=== PATIENT | female | born 1995 | race Caucasian/White ===

== ENCOUNTER 2018-06-09 22:19 | Emergency (ER) | payer OTHER, SELFPAY ==
[~2018-06-09] VITALS: Ht 160 cm; Wt 80.4 kg
[2018-06-09] MEDS ORDERED: SODIUM CHLORIDE FLUSH 10ML SYR IVF ONE (23:00)
[2018-06-09] MEDS ORDERED: SODIUM CHLORIDE 0.9% 1,000ML IVBOLUS ONE (23:00)
[2018-06-09 23:10] LABS: BASOPHILS # (AUTO) 0.03 x10^3/uL (0-0.1); BASOPHILS % (AUTO) 0 % (0-1); EOSINOPHILS # (AUTO) 0.32 x10^3/uL (0-0.4); EOSINOPHILS % (AUTO) 4 % (1-7); LYMPHOCYTES # (AUTO) 1.77 x10^3/uL (1-3.4); LYMPHOCYTES % (AUTO) 20 % (22-44); MD NO; MEAN CORPUSCULAR HEMOGLOBIN 28.9 pg (27.0-34.8); MEAN CORPUSCULAR HGB CONC 34.3 g/dL (32.4-35.8); MEAN CORPUSCULAR VOLUME 84.2 fL (80-100); MEAN PLATELET VOLUME 8.3 fL (7.4-10.4); MONOCYTES # (AUTO) 0.54 x10^3/uL (0.2-0.8); MONOCYTES % (AUTO) 6 % (2-9); NEUTROPHILS # (AUTO) 6.32 x10^3/uL (1.8-6.8); NEUTROPHILS % (AUTO) 70 % (42-75); PLATELET COUNT 237 x10^3/uL (130-400); RED BLOOD COUNT 4.82 x10^6/uL (3.82-5.3); RED CELL DISTRIBUTION WIDTH 12.7 % (9.6-15.2)
[2018-06-09 23:22] LABS: ALANINE AMINOTRANSFERASE 23 U/L (12-78); ANION GAP 6 mmol/L (5-15); CALCIUM 9.1 mg/dL (8.5-10.1); CHLORIDE 108 mmol/L (98-107); CREATININE 0.81 mg/dL (0.55-1.02)
[2018-06-09 23:26] LABS: ALKALINE PHOSPHATASE 58 U/L (45-117); BILIRUBIN,TOTAL 0.5 mg/dL (0.2-1.0); TOTAL PROTEIN 7.6 g/dL (6.4-8.2)
[2018-06-09 23:29] LABS: MICROSCOPIC AUTO
[2018-06-09 23:32] LABS: CULTURE INDICATED? YES
[2018-06-09 23:34] VITALS: BP 135/82
== END 2018-06-10 00:27 | disposition home or self-care (01) ==
LOC: ED 23:59
DX: R10.13 Epigastric pain (principal); R11.2 Nausea with vomiting, unspecified; R19.7 Diarrhea, unspecified
CPT/HCPCS: 36415; 76700; 80053; 81001; 83690; 84703; 85025; 87086; 96360; 99285; J7030

== ENCOUNTER → 2018-07-20 | Outpatient (CLI) | payer OTHER ==
[~2018-07-20] MED LIST: REGADENOSON 0.4 MG/5 ML SYRINGE ONE; SINCALIDE (KINEVAC) 5 MCG ONE
== END | disposition home or self-care (01) ==
LOC: RAD 10:49
PROVIDERS: ATTEND Surgery
DX: R10.9 Unspecified abdominal pain (principal)
CPT/HCPCS: 78227; A9537; J2805; J2785

== ENCOUNTER → 2018-08-19 | Outpatient (CLI) | payer OTHER ==
[~2018-08-19] MED LIST changes: +CALC500T93 PO; +OXYC5TAB3 PO; +PROM25SU34 PO; -REGADENOSON 0.4 MG/5 ML SYRINGE ONE; -SINCALIDE (KINEVAC) 5 MCG ONE
== END | disposition home or self-care (01) ==
LOC: STAR 14:10
PROVIDERS: ATTEND Surgery
DX: Z02.9 Encounter for administrative examinations, unspecified (principal)

== ENCOUNTER 2018-08-24 14:30 | Day surgery (SDC) | payer OTHER ==
[~2018-08-24] VITALS: Ht 157.5 cm; Wt 74.0 kg
[~2018-08-24 14:30] MED LIST changes: -OXYC5TAB3 PO; -PROM25SU34 PO
[2018-08-24] MEDS ORDERED: LACTATED RINGERS 1,000 ML IV SCH ×2 (14:57→20:00)
[2018-08-24 15:14] VITALS: BP 136/86
[2018-08-24 15:32] LABS: HCG UR SG 1.002 (1.003-1.030)
[2018-08-24] MEDS ORDERED: BUPIVACAINE/PF-EPI 0.5% 1:200K ONE (16:23)
[2018-08-24] MEDS ORDERED: MIDAZOLAM 1 MG/ML, 2ML ONE (16:29)
[2018-08-24] MEDS ORDERED: FENTANYL PF 250 MCG/5ML ONE (16:29)
[2018-08-24] MEDS ORDERED: PROMETHAZINE 12.5 MG SUPP PR PRN (17:00)
[2018-08-24] MEDS ORDERED: LORazepam 2 MG/ML, 1ML IVPush PRN (17:00)
[2018-08-24] MEDS ORDERED: ONDANSETRON 2MG/ML, 2ML IV PRN (17:00)
[2018-08-24] MEDS ORDERED: ONDANSETRON ODT 8 MG PO PRN (17:00)
[2018-08-24] MEDS ORDERED: MORPHINE SULFATE 4 MG/ML, 1ML IVPush PRN (17:00)
[2018-08-24] MEDS ORDERED: PROMETHAZINE 25 MG/ML, 1ML IV PRN (17:00)
[2018-08-24] MEDS ORDERED: FENTANYL PF 100 MCG/2ML IV PRN (17:00)
[2018-08-24] MEDS ORDERED: ACETAMINOPHEN 325 MG TABLET PO PRN (17:00)
[2018-08-24] MEDS ORDERED: PROMETHAZINE 25 MG SUPP PR PRN (17:00)
[2018-08-24] MEDS ORDERED: MEPERIDINE/PF 25MG/0.5ML IVPush PRN (17:00)
[2018-08-24] MEDS ORDERED: ONDANSETRON 2MG/ML, 2ML ONE ×2 (17:10→17:59)
[2018-08-24] MEDS ORDERED: PROPOFOL 10 MG/ML, 20ML ONE (17:10)
[2018-08-24] MEDS ORDERED: ROCURONIUM 10MG/ML,5ML ONE (17:10)
[2018-08-24] MEDS ORDERED: SUCCINYLCHOLINE 20 MG/ML, 10ML ONE (17:10)
[2018-08-24] MEDS ORDERED: GLYCOPYRROLATE 0.2MG/1ML, 5ML ONE (17:10)
[2018-08-24] MEDS ORDERED: NEOSTIGMINE 1 MG/ML, 10ML ONE (17:10)
[2018-08-24] MEDS ORDERED: DEXAMETHASONE 4 MG/ML, 1ML ONE (17:10)
[2018-08-24] MEDS ORDERED: CEFAZOLIN 1,000 MG ONE (17:10)
[2018-08-24] MEDS ORDERED: OXYcodone 5 MG/5 ML ORAL.SOL UDC ONE ×2 (17:41→17:44)
[2018-08-24] MEDS ORDERED: ACETAMINOPHEN 650 MG/20.3 ML UDC ONE (17:41)
[2018-08-24] MEDS: OXYcodone 5 MG/5 ML ORAL.SOL UDC PO PRN ×2 (17:43→18:51)
[2018-08-24] MEDS ORDERED: FENTANYL PF 100 MCG/2ML ONE (17:44)
[2018-08-24] MEDS ORDERED: PROMETHAZINE 25 MG/ML, 1ML ONE (18:10)
[2018-08-24] MEDS ORDERED: HYDROmorphone 2 MG/ML, 1ML IV PRN (20:00)
[2018-08-24] MEDS ORDERED: ACETAMINOPHEN 500 MG TABLET PO SCH (20:00)
[2018-08-24] MEDS ORDERED: OXYcodone 5 MG/5 ML ORAL.SOL UDC PO PRN (20:00)
[2018-08-24] MEDS ORDERED: DIPHENHYDRAMINE 50 MG/ML, 1ML IVPush PRN (20:00)
[2018-08-24] MEDS ORDERED: ONDANSETRON 2MG/ML, 2ML IVPush PRN (20:00)
[2018-08-24] MEDS ORDERED: OXYC5TAB3 PO (20:41)
[2018-08-24] MEDS ORDERED: PROM25SU34 PO (20:42)
[2018-08-24] MEDS ORDERED: IBUPROFEN 600 MG TABLET PO SCH (21:00)
== END 2018-08-24 21:40 | disposition home or self-care (01) ==
LOC: OUT 14:30 → 4NOR 19:42 → OUT 21:40
PROVIDERS: ATTEND Surgery
DX: K81.1 Chronic cholecystitis (principal); I10 Essential (primary) hypertension; Z88.1 Allergy status to other antibiotic agents; Z91.040 Latex allergy status
CPT/HCPCS: 47562; 81025; 88304; J0330; J0690; J1100; J2250; J2405; J2550; J2704; J2710; J3010; J3490; J7120; G0378